=== PATIENT | female | born 1985 | race Caucasian/White ===

== ENCOUNTER 2024-07-28 16:38 | Emergency (ER) | payer OTHER, SELFPAY ==
[2024-07-28 16:49] VITALS: BP 128/70; PULSE 64; RESP 20; TEMP 37.4; O2SAT 100
--- NOTE | 2024-07-28 16:53 | ED_ITS ---
HPI - URI/Sore Throat General Chief Complaint: Upper Respiratory Infection Stated Complaint: cough/tight chest/diarrhea History of Present Illness HPI Narrative: Patient presents with a 2 week history of cough nasal congestion productive cough at times denies any shortness of breath no chest pain no fever no body aches. Patient declines testing for COVID or influenza at this time. Related Data Allergies Allergy/AdvReac Type Severity Reaction Status Date / Time No Known Allergies Allergy Verified 07/28/24 16:48 Review of Systems Review of Systems: CONSTITUTIONAL: Denies chills, or sweats. Reports fever and generalized body aches EYES: Denies visual changes, redness, or discharge. ENT: Denies otalgia. Reports nasal congestion runny nose and sore throat CARDIOVASCULAR: Denies chest pain, palpitations, or edema. RESPIRATORY: Denies dyspnea. Reports occasional cough GASTROINTESTINAL: Denies abdominal pain, nausea, vomiting, or diarrhea. GENITOURINARY: Denies dysuria or hematuria. SKIN: Denies rash or itching. MUSCULOSKELETAL: Denies back pain, joint pain, or myalgia. Reports generalized body aches NEUROLOGIC: Denies headache, numbness, or weakness. PSYCHIATRIC: Denies anxiety or depression. PMFSH Comments At time of signature, agree with nursing past medical, surgical, social and family history. There is no relevant family history pertinent to the presenting complaint Exam Narrative: The patient is a well-developed, well-nourished in no acute distress. SKIN: Skin is warm and dry without erythema, swelling or exudate. There is good turgor. No tenting. HEAD: Atraumatic. Normocephalic. No temporal or scalp tenderness. EYES: Moist and bright. Sclera and conjunctivae normal. No discharge. PERRLA. Extraocular motions intact. Gross visual acuity intact. EARS: Pinna is normal shape and contour. Clear external auditory canals. TM pearly singleton with good cone of light, no erythema or suppuration. Bilateral cerumen noted no gross hearing deficit. NOSE: pink, moist mucosa with good air movement. Clear rhinorrhea without nasal flaring. Septum midline. Mouth: moist mucous membranes. THROAT; mild erythema noted to posterior oropharynx with moderate postnasal drainage. Without exudate or ulceration.. Uvula midline. Normal movement of soft palate. NECK: Supple and nontender with full range of motion without discomfort. No me ningeal signs. LUNGS: Equal and bilateral breath sounds coarse lung sounds left lower base few scattered expiratory wheezes CHEST: The chest wall is without retractions or use of accessory muscles. HEART: Has a regular rate and rhythm without murmur, gallops, click or rub. ABDOMEN: Soft, nontender with positive active bowel sounds. No rebound tenderness. EXTREMITIES: Without cyanosis, clubbing or edema. Equal 2+ distal pulses and 2 second capillary refill noted. NEUROLOGIC: alert, active, . The patient moves all extremities with normal muscle strength. Normal muscle tone is noted. Normal coordination is noted. NO focal neurological findings noted. Course Course Level of Care: Express Care Visit Vital Signs Vital signs: Vital Signs Temperature 37.4 C 07/28/24 16:49 Pulse Rate 64 07/28/24 16:49 Respiratory Rate 20 07/28/24 16:49 Blood Pressure 128/70 07/28/24 16:49 Pulse Oximetry 100 07/28/24 16:49 Oxygen Delivery Room Air 07/28/24 16:49 Temperature 37.4 C 07/28/24 16:49 Pulse Rate 64 07/28/24 16:49 Respiratory Rate 20 07/28/24 16:49 Blood Pressure 128/70 07/28/24 16:49 Pulse Oximetry 100 07/28/24 16:49 Oxygen Delivery Room Air 07/28/24 16:49 Discharge Plan Discharge Clinical Impression: Upper respiratory infection, Lung crackles Patient Disposition: Home, Self-Care Condition: Stable Instructions: Antibiotic Form Additional Instructions: congestion - flonase am and pm for chronic sinus congestion or prolonged symptoms of sinusitis (takes several days to work). one to three times a day of irrigation of sinus with saline spray, ocean nasal spray or hamlet pot. fluids. if you don't have hypertension-afrin nasal spray with a 3 day limit for immediate relief of sinus congestion. for runny nose: do over the counter antihistamine (claritin, benadryl, zyrtec) for sneezing, runny nose. allergies. sudafed or decongestant can also be used, unless you have elevated blood pressure, nursing or . pineapple juice to help thin mucus pain and discomfort: over the counter treatment for pain - tylenol - with a max of 3 grams a day, not to take more than 3-4 days at this dose. discussed aleve - 1-2 am and pm with food. also not to take more than a few days if not improving. patient understands not to take ibuprofen or aleve without food. patient understands ibuprofen max is 4 pills 3 times a day, also not to take this amount for more than a few days if not improving. rest. -If you have any worsening of symptoms or any other concerns please go to the ED immediately. throat pain- gargling with salt water, throat losengers or chloraseptic spray may help with throat pain. if older than 2 years, cough- can try honey for cough if older than one year. mucinex, nyquil, dayquil, robitussin and other otc cold/cough medications can all be used in teenagers and adults with caution. do not mix or use multiple therapies without discussing with your doctor or pharmacy. steam from shower twice daily or cool mist humidifier. pineapple juice to help thin mucus eat yogurt 1-2 times daily or consider probiotics if on antibiotics. -If you have any worsening of symptoms or any other concerns please go to the ED immediately. Patient Language: [place] Prescriptions: New benzonatate 100 mg capsule 100 mg PO TID PRN (Reason: cough) 5 Days Qty: 10 0RF albuterol sulfate 90 mcg/actuation HFA aerosol inhaler 2 puff inhalation QID PRN (Reason: shortness of breath or wheezing) Qty: 1 0RF loratadine [Claritin] 10 mg tablet 10 mg PO DAILY Qty: 14 0RF azithromycin [Zithromax Z-Jaskaran] 250 mg tablet See Rx Instructions .ROUTE .COMPLEX Qty: 6 0RF Rx Instructions: take 500 mg today (day 1), then 250 mg for 4 days (days 2-5) fluticasone propionate [Flonase Allergy Relief] 50 mcg/actuation spray,suspension 2 spray NASAL BID Qty: 9.9 0RF Rx Instructions: administer into each nostril Follow-up/Referrals: PHYSICIAN,MAIL ORDER SORTER [Primary Care Provider] -
--- OUTSIDE RECORDS SUMMARY | 2024-08-02 14:20 | XMS_ITS | Clinical Summary ---
Author Organization [facility] [address] [facility] lt Address [address] [place] [address] Care Team Providers Care Apprentice Painter Neckties Name Role Phone No, Physician Primary Care Provider [phone] Allergies No known active allergies Medications benzonatate (TESSALON) 200 mg capsuleIndicati ons:Viral URI with cough Take 1 capsule (200 mg total) by mouth 3 (three) times a day as needed for cough 30 capsule 04/02/2024 Active Active Problems No known active problems Encounters Date Type Department Care Team Description 07/28/2024 10:42 AM SOLID WASTE DISPOSAL MANAGER - 07/28/2024 1:47 PM SOLID WASTE DISPOSAL MANAGER Emergency [facility] Emergency Department [address] [place] [address] Discharge Disposition: Left without being seen from Last 3 Months Social History Tobacco Use Types Packs/Day Years Used Date Smoking Tobacco: Never Assessed Personal Safety Answer Date Recorded Have you ever been in or are you currently in a harmful physical or emotional relationship or is someone making you feel afraid or unsafe? Denies 07/28/2024 Comments No Sex and Gender Information Value Date Recorded Sex Assigned at Not on file Legal Sex Female 8:49 AM CDT Gender Identity Not on file Sexual Orientation Not on file Obstetrics History Last Filed Vital Signs Vital Sign Reading Time Taken Comments Blood Pressure 133/68 07/28/2024 1:19 PM SOLID WASTE DISPOSAL MANAGER Pulse 63 07/28/2024 1:19 PM SOLID WASTE DISPOSAL MANAGER Temperature 37.8 ??C (100.1 ??F) 07/28/2024 1:[address] Respiratory Rate 18 07/28/2024 1:19 PM SOLID WASTE DISPOSAL MANAGER Oxygen Saturation 100% 07/28/2024 1:19 PM SOLID WASTE DISPOSAL MANAGER Inhaled Oxygen Concentration - - Weight 54.4 kg (120 lb) 07/28/2024 10:44 AM SOLID WASTE DISPOSAL MANAGER Height 162.6 cm (5' 4 ) 07/28/2024 10:44 AM SOLID WASTE DISPOSAL MANAGER Body Mass Index 20.6 07/28/2024 10:44 AM SOLID WASTE DISPOSAL MANAGER Plan of Treatment Health Maintenance Due Date Last Done Comments Cervical Cancer Screening 1984 Depression Screening 1984 Hepatitis C Screening 1984 DTaP/Tdap/Td Vaccine (1 - Tdap) 1995 Varicella Vaccines (1 of 2 - 13+ 2-dose series) 1997 Hepatitis B Screening 2002 Regular Well Visit/Exam 18-64 2002 Influenza Vaccine (#1) 2024 HPV Vaccines Aged Out No longer eligi ble based on patient's age to complete this topic Pneumococcal vaccine <65 Aged Out No longer eligible based on patient's age to complete this topic Insurance Care Teams Apprentice Painter Neckties Relationship Specialty Start Date End Date No, Physician PCP - General 04/02/24
--- OUTSIDE RECORDS SUMMARY | 2024-08-02 14:20 | XMS_ITS | Encounter Summary ---
Author Organization [facility] Healthcare Address [address] [place] [address] Care Team Providers Care Digital Field Service Technician Name Role Phone No, Physician Primary Care Provider Reason for Visit * Reason Comments Sore Throat Sore throat, cough, chest congestion, b/l ear pain, sx's started yesterday, no exp, otc dayquil and nyquil Encounter Details Date Type Department Care Team (Late st Contact Info) Description 04/02/2024 11:45 AM CDT Office Visit [facility] [place] [address] [place] [id number] Aranza Quiñones, PARENT TRAINER [address] [place] [address] Viral URI with cough (Primary Dx) Social History Tobacco Use Types Packs/Day Years Used Date Smoking Tobacco: Never Assessed Comments Unknown Sex and Gender Information Value Date Recorded Sex Assigned at Not on file Legal Sex Female 8:49 AM CDT Gender Identity Not on file Sexual Orientation Not on file documented as of this encounter Last Filed Vital Signs Vital Sign Reading Time Taken Comments Blood Pressure 118/68 04/02/2024 11:42 AM CDT Pulse 88 04/02/2024 11:42 AM CDT Temperature 36.6 ??C (97.8 ??F) 04/02/2024 11:42 AM C DT Respiratory Rate 18 04/02/2024 11:42 AM CDT Oxygen Saturation 99% 04/02/2024 11:42 AM CDT Inhaled Oxygen Concentration - - Weight 55.3 kg (122 lb) 04/02/2024 11:42 AM CDT Height 162.6 cm (5' 4 ) 04/02/2024 11:42 AM CDT Body Mass Index 20.94 04/02/2024 11:42 AM CDT documented in this encounter Patient Instructions * Patient Instructions* Aranza Quiñones NP - 04/02/2024 11:45 AM CDT Magic mouthwash: equal parts liquid benadryl/diphenhydramine and maalox/mylanta + 1-2 drops of anbesol. Gargle and spit every 6 hours for sore throat as needed. PHARYNGITIS Strep testing today was Negative A throat culture has been sent to the lab. The clinic will call with abnormal results. Most sore throats are caused by viruses. Viruses last approx 7-10 days on average. Antibiotics do not help. Using them to treat viral infections helps strengthen bacteria and make them resistant to antibiotics. Sore throats should only be treated with antibiotics if a strep test is positive. Follow up with your pcp if symptoms are not improving. Go to ER/call PCP if worsening symptoms including fever unrelieved by tylenol/ibuprofen, rash, difficulty swallowing, tonsillar/throat swelling, difficulty breathing. The following tips may help your sore throat feel better: ? Drink warm liquids such as lemon tea or tea with honey. ? Gargle several times a day with warm salt water (1/2 tsp of salt in 1 cup water). ? Drink cold liquids or suck on popsicles. ? Suck on hard candies or throat lozenges. Young children should not be given such products becausethey can choke on them. ? A cool-mist vaporizer or humidifier can moisten and soothe a dry and painful throat. ? Try btzn-wbk-kavkeiv pain medications, such as acetaminophen or ibuprofen Research has proven that unless you are running a fever or symptoms start to improve then get worseagain, sinus infections are typically viral until days 9- 10. This means they will not respond to antibiotics. You have been diagnosed with a VIRAL INFECTION. -Viral infections do not improve with antibiotics. -Viral symptoms can linger from 7-14 days -The color of drainage or phlegm does not always reflect the need for an antibiotic, even during a viral illness it is normal for drainage to change from yellow to green at times. -Please refer to the CDC Get Smart (cdc.gov/getsmart) campaign for more details. There are many OTC medications and supportive care measures you can try to treat your symptoms until your symptoms resolve. Use all OTC medications as directed per package instructions Symptomatic treatments include: Increase Vitamins C,D , Zinc -For nasal congestion or sinus pressure - phenylephrine or pseudoephedrine can be used, if you havehigh blood pressure problems do not take these medications. CORICIDIN products are good for people with high blood pressure. -Over the counter loratadine (Claritin) or cetirizine (Zyrtec) to reduce secretions. -Dextromethorphan (Robitussin) for cough-do not use if you have high blood pressure or heart disease -You may try flonase nasal spray for your nasal congestion. -Acetaminophen (Tylenol), ibuprofen (Motrin, Advil), or Aleve (naproxen) for pain or fever. -The use of hypertonic saline to irrigate nasal passageways can be helpful. Over the counter systems include Neti Pot and Nasopure. Use with distilled water -Salt water gargles and throat lozenges can be helpful for sore throat. -Antihistamines (Xyzal, Zyrtec, Claritin or Caitlin) as needed for drainage. -Mucinex/guaifenesin (make sure it does not contain a decongestant if you have high blood pressure)as directed to promote cough -Cough drops and throat lozenges -Increase decaffeinated fluids -Sleep with head of bed raised (to promote drainage) -Warm packs to face to facilitate sinus drainage -Avoid spreading the virus by remaining at home and away from others until you are fever-free (temperature below 100) for 24 hours, without the aid of fever reducers. Good handwashing and covering your mouth whencoughing are also important. -To prevent spreading the illness to others cover your sneeze and cough into your arm and not your hand, don't allow others to eat or drink with the same utensils or glass, and use hand carpenter mine before touching people or common surfaces. If you are not improving or worsening in the next 5-7 days you must RETURN to the clinic, go to your PCP, or Urgent Care/ER to be SEEN and reevaluated. No prescriptions or refills will be given by phone without another evaluation. SERIOUS COMPLICATIONS AFTER AN UPPER RESPIRATORY ILLNESS CAN OCCUR. CALL 911 OR GO TO ER WITH ANY DIFFICULTY BREATHING, SHORTNESS OF BREATH, INCREASED WORK OF BREATHING, DIFFICULTY TAKING A DEEP BREATH, ANY CHANGES IN THE COLOR OF YOUR SKIN (BLUISH OR PALE COLOR), WORSENING OF COUGH, OR CONSISTENT FEVERS, INABILITY TO KEEP FLUIDS DOWN, DECREASED ABILITIY TO URINATE,INCREASED HEADACHE, OR NEW NECKSTIFFNESS. VIRAL ILLNESSES LEAVE YOU MORE VULNERABLE TO DEVELOP A BACTERIAL INFECTION AND ANY OF THESE SIGNS AND SYMPTOMS SHOULD BE TAKEN SERIOUSLY. documented in this encounter Ordered Prescriptions Prescription Sig Dispense Quantity Refills Last Filled Start Date End Date benzonatate (TESSALON) 200 mg capsuleIndications :Viral URI with cough Take 1 capsule (200 mg total) by mouth 3 (three) times a day as needed for cough 30 capsule 04/02/2024 lidocaine viscous (XYLOCAINE) 2 % solutionIndication s:Viral URI with cough Apply 15 mL to the mouth or throat every 4 (four) hours as needed (for sore throat) for up to 5 days Swish & spit 200 mL 04/02/2024 documented in this encounter Progress Notes * Aranza Quiñones NP - 04/02/2024 11:45 AM CDT Images from the original note were not included. Subjective/Objective Patient ID: Eliz Alford is a 38 y.o. female. Chief Complaint Sore Throat (Sore throat, cough, chest congestion, b/l ear pain, sx's started yesterday, no exp, otc dayquil and nyquil) Pt presents to [facility] c/o sore throat, productive cough,nasal congestion, dania ear pain, chest congestion for the past days. OTC meds tried-dayquil, nyquil. Denies SOB or fever. Pt is drinking plenty of fluids. No known sick contacts. Sore Throat Review of Systems HENT: Positive for sore throat. All systems reviewed and are negative or non contributory for this patient's presentation today other than as stated in the HPI. Physical Exam Vitals and nursing note reviewed. Constitutional: General: She is not in acute distress. Appearance: She is not ill-appearing or toxic-appearing. HENT: Head: Normocephalic. Right Ear: Tympanic membrane, ear canal and external ear normal. Left Ear: Tympanic membrane, ear canal and external ear normal. Nose: Mucosal edema present. Mouth/Throat: Pharynx: Posterior oropharyngeal erythema and postnasal drip present. Eyes: Conjunctiva/sclera: Conjunctivae normal. Cardiovascular: Rate and Rhythm: Normal rate and regular rhythm. Heart sounds: Normal heart sounds. Pulmonary: Effort: Pulmonary effort is normal. No respiratory distress. Breath sounds: Normal breath sounds. No wheezing or rales. Musculoskeletal: Cervical back: No rigidity. Lymphadenopathy: Head: Right side of head: Tonsillar adenopathy present. Left side of head: Tonsillar adenopathy present. Skin: General: Skin is warm and dry. Neurological: General: No focal deficit present. Mental Status: She is alert and oriented to person, place, and time. Psychiatric: Mood and Affect: Mood normal. Behavior: Behavior normal. Thought Content: Thought content normal. Vitals: 04/02/24 1142 BP: 118/68 Pulse: 88 Resp: 18 Temp: 36.6 ??C (97.8 ??F) TempSrc: Temporal SpO2: 99% Weight: 55.3 kg (122 lb) Height: 162.6 cm (5' 4 ) Assessment/Plan Rapid strep and covid neg Throat culture collected Discussed viral versus bacterial infections and the lack of benefit of antibiotics in treatment of viral infections. Discussed supportive care including antihistamines, decongestants, Mucinex and Tylenol and Ibuprofen for pain. Encouraged to take medications as discussed over the next 7-10 days. Neeru chu verbalizes understanding of instructions given. Diagnoses and all orders for this visit: Viral URI with cough (Primary) - POCT rapid strep A - COVID-19 POC - benzonatate (TESSALON) 200 mg capsule; Take 1 capsule (200 mg total) by mouth 3 (three) times a day as needed for cough - lidocaine viscous (XYLOCAINE) 2 % solution; Apply 15 mL to the mouth or throat every 4 (four) hours as needed (for sore throat) for up to 5 days Swish & spit - Throat culture Throat; Future Recent Results (from the past 24 hour(s)) POCT rapid strep A Collection Time: 04/02/24 12:07 PM Result Value Ref Range Rapid Strep A, POC Negative Negative COVID-19 POC Collection Time: 04/02/24 12:08 PM Specimen: Nasal Result Value Ref Range COVID-19 Ag POC (BD Veritor) Presumptive Negative Presumptive Negative, Invalid Patient Education: Disposition Treatment plan including expectations, follow up, and return precautions discussed with patient/parent, verbalizes understanding. Medication dosage, use, and potential adverse reactions discussed with patient/parent. Advised to follow up with PCP if symptoms do not resolve as expected or sooner if condition worsens. Signs/symptoms warranting ER evaluation reviewed. Patient and/or guardian was given an opportunity to ask questions, questions answered. This office note has been partially dictated using 360imaging software, and as a result portions of the record may have been created with this software. Occasional wrong-word or '[id number]' substitutions may have occurred due to the inherent limitations of voice recognition software. Read the chartcarefully and recognize, using context, where substitutions have occurred Aranza Quiñones NP documented in this encounter Miscellaneous Notes * Addendum Note - Shena De Jesus - 04/02/2024 11:45 AM CDTAddended by: SHENA DE JESUS on: 04/02/2024 05:52 PM Modules accepted: Orders documented in this encounter Plan of Treatment Not on file documented as of this encounter Procedures Procedure Name Priority Date/Time Associated Diagnosis Comments COVID-19 POC Routine 04/02/2024 12:08 PM CDT Viral URI with cough POCT RAPID STREP Routine 04/02/2024 12:0 7 PM CDT Viral URI with cough documented in this encounter Results * Throat culture Throat (04/02/2024 12:23 PM CDT) Report Final Report: No growth of pathogens. Comment:Testing performed by : [facility], [address] [place]., [address] Throat 04/02/2024 12:2 3 PM CDT 04/02/2024 10:20 PM CDT Narrative MALATHI ROD - 04/03/2024 7:11 PM CDT Testing performed by [facility] Laboratory ([phone]). Aranza Quiñones PARENT TRAINER LAB MICROBIOLOGY - GENERAL ORD ERABLES Final Result MALATHI [address] Department [place] [address] * COVID-19 POC (04/02/2024 12:08 PM CDT) COVID-19 Ag POC (BD Veritor) Presumptive Negative Presumptive Negative, Invalid [facility] Nasal 04/02/2024 12:0 8 PM CDT Aranza Quiñones PARENT TRAINER POINT OF CARE TEST ORDERABLES Final Result [facility] [address] [place] [id number] * POCT rapid strep A (04/02/2024 12:07 PM CDT) Rapid Strep A, POC Negative Negative Swab 04/02/2024 12:0 7 PM CDT Aranza Quiñones PARENT TRAINER POINT OF CARE TEST ORDERABLES Final Result documented in this encounter Visit Diagnoses Diagnosis Viral URI with cough- Primary Viral URI with cough documented in this encounter Additional Health Concerns Infection Onset Date Last Indicated Resolved Time COVID: Suspected 04/02/2024 04/02/2024 04/02/2024 12:09 PM CDT documented as of this encounter Care Teams Digital Field Service Technician Relationship Specialty Start Date End Date No, Physician PCP - General 04/02/24 documented as of this encounter
--- OUTSIDE RECORDS SUMMARY | 2024-08-02 14:20 | XMS_ITS | Encounter Summary ---
Author Organization [facility] Healthcare Address [address] [place] [address] Care Team Providers Care Splicer Machine Operator Name Role Phone No, Physician Primary Care Provider [phone] Encounter Details Date Type Department Care Team (Late st Contact Info) Description 04/04/2024 Telephone [facility] Medical Group [facility] [place] [address] [place] [address] Keisha Fletcher MA Social History Tobacco Use Types Packs/Day Years Used Date Smoking Tobacco: Never Assessed Comments Unknown Sex and Gender Information Value Date Recorded Sex Assigned at Not on file Legal Sex Female 8:49 AM CDT Gender Identity Not on file Sexual Orientation Not on file documented as of this encounter Miscellaneous Notes * Telephone Encounter - Keisha Fletcher MA - 04/04/2024 8:53 AM CDT Spoke with the patient regarding results; she states understanding and has no further questions at this time. * Telephone Encounter - Keisha Fletcher MA - 04/04/2024 8:53 AM CDT ----- Message from Thea Donato NP sent at 04/03/2024 7:51 PM CDT ----- Please call patient and let them know the throat culture was negative for infection. documented in this encounter Plan of Treatment Not on file documented as of this encounter Visit Diagnoses Not on filedocumented in this encounter Care Teams Splicer Machine Operator Relationship Specialty Start Date End Date No, Physician PCP - General 04/02/24 documented as of this encounter
--- OUTSIDE RECORDS SUMMARY | 2024-08-02 14:20 | XMS_ITS | Encounter Summary ---
Author Organization [facility] Healthcare Address [address] [place] [address] Care Team Providers Care Licensed Master Social Worker Name Role Phone No, Physician Primary Care Provider [phone] Reason for Visit * Reason Comments Flu Symptoms Encounter Details Date Type Department Care Team (Late st Contact Info) Description 07/28/2024 10:42 AM POOL INSTALLER - 07/28/2024 1:47 PM POOL INSTALLER Emergency [facility] Emergency Department [address] [place] [address] Discharge Disposition: Left without being seen Social History Tobacco Use Types Packs/Day Years [...] Comments Blood Pressure 133/68 07/28/2024 1:19 PM POOL INSTALLER Pulse 63 07/28/2024 1:19 PM POOL INSTALLER Temperature 37.8 ??C (100.1 ??F) 07/28/2024 1:[address] Respiratory Rate 18 07/28/2024 1:19 PM POOL INSTALLER Oxygen Saturation 100% 07/28/2024 1:19 PM POOL INSTALLER Inhaled Oxygen Concentration - - Weight 54.4 kg (120 lb) 07/28/2024 10:44 AM POOL INSTALLER Height 162.6 cm (5' 4 ) 07/28/2024 10:44 AM POOL INSTALLER Body Mass Index 20.6 07/28/2024 10:44 AM POOL INSTALLER documented in this encounter Medications at Time of Discharge benzonatate (TESSALON) 200 mg capsuleIndication s:Viral URI with cough Take 1 capsule (200 mg total) by mouth 3 (three) times a day as needed for cough 30 capsule 04/02/2024 documented as of this encounter Discharge Disposition Disposition Code Departure Means Destination Left without being seen documented in this encounter ED Notes * Cyndi Painting RN - 07/28/2024 10:43 AM CST Pt states she has been sick for two weeks. Pt states she has had a wet cough, sore throat, diarrhea. INSTALLER documented in this encounter Plan of Treatment Not on file documented as of this encounter Visit Diagnoses Not on filedocumented in this encounter Care Teams Licensed Master Social Worker Relationship Specialty Start Date End Date No, Physician PCP - General 04/02/24 documented as of this encounter
--- OUTSIDE RECORDS SUMMARY | 2024-08-02 14:20 | XMS_ITS | Encounter Summary ---
Author Organization [facility] Healthcare Address [address] [place] [address] Care Team Providers Care Air Duct Mechanic Name Role Phone No, Physician Primary Care Provider [phone] Encounter Details Date Type Department Care Team (Latest Contact Info) Description 04/02/2024 12:23 PM CDT - 04/02/2024 11:59 PM CDT Hospital Encounter [address] [address] Viral URI with cough Discharge Disposition: Discharge to home or self care Social History Tobacco Use Types Packs/Day Years Used Date Smoking Tobacco: Never Assessed Comments Unknown Sex and Gender Information Value Date Recorded Sex Assigned at Not on file Legal Sex Female 8:49 AM CDT Gender Identity Not on file Sexual Orientation Not on file documented as of this encounter Medications at Time of Discharge benzonatate (TESSALON) 200 mg capsuleIndication s:Viral URI with cough Take 1 capsule (200 mg total) by mouth 3 (three) times a day as needed for cough 30 capsule 04/02/2024 lidocaine viscous (XYLOCAINE) 2 % solutionIndicatio ns:Viral URI with cough Apply 15 mL to the mouth or throat every 4 (four) hours as needed (for sore throat) for up to 5 days Swish & spit 200 mL 04/02/2024 04/07/2024 documented as of this encounter Discharge Disposition Disposition Code Departure Means Destination Discharge to home or self care documented in this encounter Miscellaneous Notes * Result Encounter Note - Keisha Fletcher MA - 04/02/2024 11:59 PM CDT Spoke with the patient regarding results; she states understanding and has no further questions at this time. documented in this encounter Plan of Treatment Not on file documented as of this encounter Procedures Procedure Name Priority Date/Time Associated Diagnosis Comments THROAT CULTURE Routine 04/02/2024 12:23 PM CDT Viral URI with cough documented in this encounter Results * Throat culture Throat (04/02/2024 12:23 PM CDT) Report Final Report: No growth of pathogens. Comment:Testing performed by : [facility], [address] [place] [address] Throat 04/02/2024 12:2 3 PM CDT 04/02/2024 10:20 PM CDT Narrative MALATHI ROD - 04/03/2024 7:11 PM CDT Testing performed by [facility] Microbiology Laboratory ([phone]). us Aranza Quiñones [facility] MICROBIOLOGY - GENERAL ORD ERABLES Final Result [facility] [address] [address] Department [place] [address] documented in this encounter Visit Diagnoses Diagnosis Viral URI with cough documented in this encounter Care Teams Air Duct Mechanic Relationship Specialty Start Date End Date No, Physician PCP - General 04/02/24 documented as of this encounter
--- OUTSIDE RECORDS SUMMARY | 2024-08-02 14:20 | XMS_ITS | Referral Summary ---
Author Organization [facility] [address] [facility] lto Address [address] [place] [address] Care Team Providers Care Pipe Finisher Name Role Phone No, Physician Primary Care Provider [phone] Encounters Date Type Department Care Team Description 07/28/2024 10:42 AM CHEMIST WATER PURIFICATION - 07/28/2024 1:47 PM CHEMIST WATER PURIFICATION Emergency [facility] Emergency Department [address] [place] [address] Discharge Disposition: Left without being seen from Last 3 Months Allergies No known active allergies Medications benzonatate (TESSALON) 200 mg capsuleIndicati ons:Viral URI with cough Take 1 capsule (200 mg total) by mouth 3 (three) times a day as needed for cough 30 capsule 04/02/2024 Active Active Problems No known active problems Social History Tobacco Use Types Packs/Day Years [...] on file Sexual Orientation Not on file Last Filed Vital Signs Vital Sign Reading Time Taken Comments Blood Pressure 133/68 07/28/2024 1:19 PM CHEMIST WATER PURIFICATION Pulse 63 07/28/2024 1:19 PM CHEMIST WATER PURIFICATION Temperature 37.8 ??C (100.1 ??F) 07/28/2024 1:[address] Respiratory Rate 18 07/28/2024 1:19 PM CHEMIST WATER PURIFICATION Oxygen Saturation 100% 07/28/2024 1:19 PM CHEMIST WATER PURIFICATION Inhaled Oxygen Concentration - - Weight 54.4 kg (120 lb) 07/28/2024 10:44 AM CHEMIST WATER PURIFICATION Height 162.6 cm (5' 4 ) 07/28/2024 10:44 AM CHEMIST WATER PURIFICATION Body Mass Index 20.6 07/28/2024 10:44 AM CHEMIST WATER PURIFICATION Plan of Treatment Not on file Insurance Care Teams Pipe Finisher Relationship Specialty Start Date End Date No, Physician PCP - General 04/02/24
== END 2024-07-28 17:05 | disposition home or self-care (01) ==
PROVIDERS: Emergency Provider Nurse Practitioner Family
DX: J06.9 Acute upper respiratory infection, unspecified (principal); R09.89 Other specified symptoms and signs involving the circulatory and respiratory systems
CPT/HCPCS: 99203; G0463

== ENCOUNTER 2024-10-04 15:52 | Emergency (ER) | payer OTHER, SELFPAY ==
[2024-10-04 15:53] VITALS: BP 138/74; PULSE 76; RESP 18; TEMP 36.8; O2SAT 99
--- OUTSIDE RECORDS SUMMARY | 2024-10-04 15:54 | XMS_ITS | Clinical Summary ---
Author Organization [facility] [place] 163 [facility] lt Address [address] [place] [address] Care Team Providers Care Quality Assurance Representative Name Role Phone No, Physician Primary Care Provider [phone] Allergies No known active allergies Medications benzonatate (TESSALON) 200 mg capsuleIndicati ons:Viral URI with cough Take 1 capsule (200 mg total) by mouth 3 (three) times a day as needed for cough 30 capsule 04/02/2024 Active Active Problems No known active problems Encounters Date Type Department Care Team Description 07/28/2024 10:42 AM PRODUCE DEPARTMENT MANAGER - 07/28/2024 1:47 PM PRODUCE DEPARTMENT MANAGER Emergency [facility] Emergency Department [address] [place] [address] Discharge Disposition: Left without being seen from [...] Comments Blood Pressure 133/68 07/28/2024 1:19 PM PRODUCE DEPARTMENT MANAGER Pulse 63 07/28/2024 1:19 PM PRODUCE DEPARTMENT MANAGER Temperature 37.8 C (100.1 F) 07/28/2024 1:19 PM PRODUCE DEPARTMENT MANAGER Respiratory Rate 18 07/28/2024 1:19 PM PRODUCE DEPARTMENT MANAGER Oxygen Saturation 100% 07/28/2024 1:19 PM PRODUCE DEPARTMENT MANAGER Inhaled Oxygen Concentration - - Weight 54.4 kg (120 lb) 07/28/2024 10:44 AM PRODUCE DEPARTMENT MANAGER Height 162.6 cm (5' 4 ) 07/28/2024 10:44 AM PRODUCE DEPARTMENT MANAGER Body Mass Index 20.6 07/28/2024 10:44 AM PRODUCE DEPARTMENT MANAGER Plan of Treatment Health Maintenance Due Date Last Done Comments Breast Cancer Screening-Mammogram 1984 Cervical Cancer Screening 1984 Depression Screening 1984 [...] patient's age to complete this topic Insurance [facility] H[facility]/PPO Address: [facility] [address] [place] [address] Care Teams Quality Assurance Representative Relationship Specialty Start Date End Date No, Physician PCP - General 04/02/24
--- OUTSIDE RECORDS SUMMARY | 2024-10-04 15:54 | XMS_ITS | Referral Summary ---
Author Organization [facility] [place] [place] 163 [facility] lt Address [address] [place] [address] Care Team Providers Care S Iron Worker Name Role Phone No, Physician Primary Care Provider Encounters Date Type Department Care Team Description 07/28/2024 10:42 AM GENERAL COUNSEL - 07/28/2024 1:47 PM GENERAL COUNSEL Emergency [facility] Emergency Department [address] [place] [address] Discharge Disposition: Left without being seen from [...] Comments Blood Pressure 133/68 07/28/2024 1:19 PM GENERAL COUNSEL Pulse 63 07/28/2024 1:19 PM GENERAL COUNSEL Temperature 37.8 C (100.1 F) 07/28/2024 1:19 PM GENERAL COUNSEL Respiratory Rate 18 07/28/2024 1:19 PM GENERAL COUNSEL Oxygen Saturation 100% 07/28/2024 1:19 PM GENERAL COUNSEL Inhaled Oxygen Concentration - - Weight 54.4 kg (120 lb) 07/28/2024 10:44 AM GENERAL COUNSEL Height 162.6 cm (5' 4 ) 07/28/2024 10:44 AM GENERAL COUNSEL Body Mass Index 20.6 07/28/2024 10:44 AM GENERAL COUNSEL Plan of Treatment Not on file Insurance [facility] HMO/PPO Address: [facility] [address] [place] [address] Care Teams S Iron Worker Relationship Specialty Start Date End Date No, Physician PCP - General 04/02/24
[2024-10-04 15:55] VITALS: O2SAT 99
--- NOTE | 2024-10-04 15:59 | ED_ITS ---
HPI - Epistaxis General Chief complaint: Epistaxis Stated complaint: fever, vomiting, diarrhea Time Seen by Provider: 10/04/24 15:59 Source: patient Mode of arrival: ambulatory Limitations: no limitations History of Present Illness HPI Narrative: patient is a 39-year-old female with a left-sided nose bleed for the past few days on and off. She has had 2 specific events with lots of blood according to the patient. [place] She has been sick with a viral syndrome for the past week as well. She has been blowing her nose and having nasal congestion. She had fever which has resolved at this time. MD complaint: epistaxis ( Left nose) Location: left nostril Onset (ago): day(s) (2) Duration: intermittent and now resolved Context: other ( no prior history of bleeding or nose bleeds [place] Associated symptoms: fever ( resolved at this time) Treatment prior to arrival: nose pinching, head tilted back and stuffed nose with tissue Related Data Allergies Allergy/AdvReac Type Severity Reaction Status Date / Time No Known Allergies Allergy Verified 10/04/24 15:56 Review of Systems 2 Review of Systems: All systems reviewed & are unremarkable except as noted in HPI and below Constitutional: Constitutional: Reports no additional constitutional complaints Eyes: Eyes: Reports no additional eye complaints ENT: Reports system reviewed and no additional complaints, except as documented Cardiovascular: Cardiovascular: Reports no additional cardiovascular complaints Respiratory: Respiratory: Reports no additional respiratory complaints Gastrointestinal: Gastrointestinal: Reports no additional gastrointestinal complaints Genitourinary: Genitourinary: Reports no additional female genitourinary complaints Musculoskeletal: Musculoskeletal: Reports no additional musculoskeletal complaints Integumentary/Breasts: Skin/Breast: Reports system reviewed and no additional complaints, except as docu Neurologic: Reports system reviewed and no additional complaints, except as documented Psychiatric: Psychiatric: Reports no additional psychiatric complaints Endocrine: Endocrine: Reports no additional endocrine complaints Hematologic/Lymphatic: Hematologic/Lymphatic: Reports no additional hematologic/lymphatic complaints Allergic/Immunologic: Allergic/Immunologic: Reports no additional allergic/immunologic complaints Exam 2 Const: General: healthy appearing Nutritional Appearance: well nourished Orientation/consciousness: patient oriented x3 Limitations: no limitations HENMT: Head: normal to inspection Ears: external ears normal F nilesh/Nose/Sinus: Normal external nose present Other: left nose / nostril has a small area of nidus where there was prior bleeding in the anterior wall; no active bleeding; no clots Eyes: Conjunctivae: conjunctivae normal Pupils: Equal, round and reactive pupils present EOM: EOMs intact bilaterally Neck: Neck: normal visual inspection Chest: Chest palpation & inspection: normal inspection of the chest Resp: Effort & Inspection: normal respiratory effort and not labored A uscultation: clear to auscultation bilaterally and no crackles Cardio: Rate: regular rate Rhythm: regular rhythm Heart sounds: no murmurs GI: Inspection: non-distended GI Palp: Yes Soft to palpation and No Tenderness to palpation present (GI) Auscultation: normal bowel sounds : General: Yes bladder normal to palpation Back/Spine/Pelvis: Back: no CVA tenderness Skin: General skin exam: normal color Rashes: no rashes Wounds: no wounds Neuro: General: patient oriented x3 Cranial nerves: Yes Nystagmus not present Speech: normal speech Extrem: General: normal to inspection Psych: Mental Status: mental status grossly normal Affect: normal affect Attitude: cooperative Course Vital Signs Vital signs: Vital Signs Temperature 36.8 C 10/04/24 15:53 Pulse Rate 76 10/04/24 15:53 Respiratory Rate 18 10/04/24 15:53 Blood Pressure 138/74 10/04/24 15:53 Pulse Oximetry 99 10/04/24 15:53 Oxygen Delivery Room Air 10/04/24 15:53 Temperature 36.8 C 10/04/24 15:53 Pulse Rate 76 10/04/24 15:53 Respiratory Rate 18 10/04/24 15:53 Blood Pressure 138/74 10/04/24 15:53 Pulse Oximetry 99 10/04/24 15:55 Oxygen Delivery Room Air 10/04/24 15:55 MDM - Epistaxis MDM Narrative Medical decision making narrative: patient is a 39-year-old female with a nose bleed on and off for the past 2 days. Patient also has a viral syndrome. We will do a COVID panel test at this time. There is no need for intervention to the nose bleed. She will get [id number] humidity and nasal moistening sprays. We will check labs for safety. Lab Data Attestation: I reviewed the patient's lab results. 10/04/24 16:25 10/04/24 16:25 Labs: Lab Results 10/04/24 10/04/24 Range/Units 16:00 16:25 WBC 3.7 L (4.8-10.8) K/mm3 RBC 3.97 L (4.20-5.40) M/mm3 Hgb 12.8 (12.0-15.0) g/dL Hct 38.8 (35.0-49.0) % MCV 97.7 (78.0-102.0) fL MCH 32.2 H (27.0-31.0) pg MCHC 33.0 (32-36) g/dL RDW 12.1 (11.6-14.4) % Plt Count 144 L (150-420) K/mm3 MPV 10.9 (9.2-11.8) fl Immature Gran % (Auto) Not Reportable Neut % (Auto) Not Reportable Lymph % (Auto) Not Reportable [place] % (Auto) Not Reportable Eos % (Auto) Not Reportable Baso % (Auto) Not Reportable Lymph # (Auto) Not Reportable [place] # (Auto) Not Reportable Eos # (Auto) Not Reportable Baso # (Auto) Not Reportable Abs Immat Gran (auto) Not Reportable Absolute Neuts (auto) Not Reportable Absolute Nucleated RBC Not Reportable Total Counted 100 Neutrophils % (Manual) 28 L (46-73) % Band Neutrophils % 0 (0-6) % Lymphocytes % (Manual) 60 H (18-44) % Monocytes % (Manual) 10 H (3-9) % Eosinophils % (Manual) 1 (1-6) % Basophils % (Manual) 1 (0-1) % Nucleated RBC % Not Reportable Abs Neuts (Manual) 1.03 L (1.7-7.2) K/mm3 Abs Lymphs (Manual) 2.22 (1.1-4.5) K/mm3 Abs Monocytes (Manual) 0.37 (0.1-0.90) K/mm3 Absolute Eos (Manual) 0.03 (0.02-0.50) K/mm3 Abs Basophils (Manual) 0.03 (0-0.1) K/mm3 Platelet Estimate Adequate (Adequate) Schistocytes Not Reportable PT 10.6 (9.50-12.1) Seconds INR 1.0 APTT 29.8 (23.9-30.70) Sec Sodium 137 (136-145) mmol/L Potassium 3.4 L (3.5-5.1) mmol/L Chloride 100 (98-108) mmol/L Carbon Dioxide 26 (21-32) mmol/L Anion Gap 11 (4-12) mmol/L BUN 9 (7-18) mg/dL Creatinine 0.84 (0.55-1.02) mg/dL Estim Creat Clear Calc 67 ml/min Estimated GFR > 60 (59 - ) Glucose 100 H (70-99) mg/dL Calculated Osmolality 282 L (285-295) mOsm/kg Calcium 8.0 L (8.5-10.1) mg/dL Total Bilirubin 0.2 (0.00-1.00) mg/dL AST 19 (15-37) U/L ALT 28 (14-59) U/L Alkaline Phosphatase 75 (46-116) U/L Total Protein 7.1 (6.4-8.2) g/dL Albumin 3.5 (3.4-5.0) g/dL Influenza A (RT-PCR) Positive A (Negative) Influenza B (RT-PCR) Negative (Negative) RSV (RT-PCR) Positive A (Negative) SARS-CoV-2 RNA (RT-PCR) Negative (Negative) Discharge Plan Discharge Clinical Impression: Epistaxis, Influenza A Respiratory syncytial virus (RSV) Qualifiers: RSV infection type: unspecified Qualified Code(s): B33.8 - Other specified viral diseases Patient Disposition: Home, Self-Care Condition: Stable Instructions: Nosebleed (ED), Influenza (DC), RSV (Respiratory Syncytial Virus) Infection (ED) Additional Instructions: Please follow-up with the primary doctor in the next week. Please use humidifier and nasal spray that is meant for moisture in the nostrils. You may get Pritesh-Synephrine which is good for nose bleeds when it starts to bleed again. Patient Language: Korean Prescriptions: No Action benzonatate 100 mg capsule 100 mg PO TID PRN (Reason: cough) 5 Days Qty: 10 0RF albuterol sulfate 90 mcg/actuation HFA aerosol inhaler 2 puff inhalation QID PRN (Reason: shortness of breath or wheezing) Qty: 1 0RF loratadine [Claritin] 10 mg tablet 10 mg PO DAILY Qty: 14 0RF azithromycin [Zithromax Z-Jaskaran] 250 mg tablet See Rx Instructions .ROUTE .COMPLEX Qty: 6 0RF Rx Instructions: take 500 mg today (day 1), then 250 mg for 4 days (days 2-5) fluticasone propionate [Flonase Allergy Relief] 50 mcg/actuation spray,suspension 2 spray NASAL BID Qty: 9.9 0RF Rx Instructions: administer into each nostril Follow-up/Referrals: UNKNOWN,DOCTOR [Primary Care Provider] - Time of Disposition: 17:02
[2024-10-04 16:28] LABS: Hematocrit 38.8 % (35.0-49.0); Hemoglobin 12.8 g/dL (12.0-15.0); Mean Corpuscular Hemoglobin 32.2 pg (27.0-31.0); Mean Corpuscular Volume 97.7 fL (78.0-102.0); Mean Platelet Volume 10.9 fl (9.2-11.8); Platelet Count Result 144 K/mm3 (150-420); Red Blood Count 3.97 M/mm3 (4.20-5.40); Red Cell Distribution Width 12.1 % (11.6-14.4); White Blood Count 3.7 K/mm3 (4.8-10.8)
--- OUTSIDE RECORDS SUMMARY | 2024-10-04 16:34 | XMS_ITS | Clinical Summary ---
Author Organization [facility] [place] 163 [facility] lt Address [address] [place] [address] Care Team Providers Care Hand Edge Bander Name Role Phone No, Physician Primary Care Provider [phone] Allergies No known active allergies Medications benzonatate (TESSALON) 200 mg capsuleIndicati ons:Viral URI with cough Take 1 capsule (200 mg total) by mouth 3 (three) times a day as needed for cough 30 capsule 04/02/2024 Active Active Problems No known active problems Encounters Date Type Department Care Team Description 07/28/2024 10:42 AM AIR CONDITIONING INSULATION INSTALLER - 07/28/2024 1:47 PM AIR CONDITIONING INSULATION INSTALLER Emergency [facility] Emergency Department [address] [place] [address] Discharge Disposition: Left without being seen from [...] Comments Blood Pressure 133/68 07/28/2024 1:19 PM AIR CONDITIONING INSULATION INSTALLER Pulse 63 07/28/2024 1:19 PM AIR CONDITIONING INSULATION INSTALLER Temperature 37.8 C (100.1 F) 07/28/2024 1:19 PM AIR CONDITIONING INSULATION INSTALLER Respiratory Rate 18 07/28/2024 1:19 PM AIR CONDITIONING INSULATION INSTALLER Oxygen Saturation 100% 07/28/2024 1:19 PM AIR CONDITIONING INSULATION INSTALLER Inhaled Oxygen Concentration - - Weight 54.4 kg (120 lb) 07/28/2024 10:44 AM AIR CONDITIONING INSULATION INSTALLER Height 162.6 cm (5' 4 ) 07/28/2024 10:44 AM AIR CONDITIONING INSULATION INSTALLER Body Mass Index 20.6 07/28/2024 10:44 AM AIR CONDITIONING INSULATION INSTALLER Plan of Treatment Health Maintenance Due Date [...] patient's age to complete this topic Insurance [facility] H[facility]PPO Address: [facility] [address] [place] [address] Care Teams Hand Edge Bander Relationship Specialty Start Date End Date No, Physician PCP - General 04/02/24
--- OUTSIDE RECORDS SUMMARY | 2024-10-04 16:34 | XMS_ITS | Referral Summary ---
Author Organization [facility] [place] 163 [facility] lt Address [address] [place] [address] Care Team Providers Care Data Management Consultant Name Role Phone No, Physician Primary Care Provider [phone] Encounters Date Type Department Care Team Description 07/28/2024 10:42 AM FELT HAT STEAMER - 07/28/2024 1:47 PM FELT HAT STEAMER Emergency [facility] Emergency Department [address] [place] [address] Discharge Disposition: Left without being seen from [...] Comments Blood Pressure 133/68 07/28/2024 1:19 PM FELT HAT STEAMER Pulse 63 07/28/2024 1:19 PM FELT HAT STEAMER Temperature 37.8 C (100.1 F) 07/28/2024 1:19 PM FELT HAT STEAMER Respiratory Rate 18 07/28/2024 1:19 PM FELT HAT STEAMER Oxygen Saturation 100% 07/28/2024 1:19 PM FELT HAT STEAMER Inhaled Oxygen Concentration - - Weight 54.4 kg (120 lb) 07/28/2024 10:44 AM FELT HAT STEAMER Height 162.6 cm (5' 4 ) 07/28/2024 10:44 AM FELT HAT STEAMER Body Mass Index 20.6 07/28/2024 10:44 AM FELT HAT STEAMER Plan of Treatment Not on file Insurance [facility] HMO/PPO Address: [facility] [address] [place] [address] Care Teams Data Management Consultant Relationship Specialty Start Date End Date No, Physician PCP - General 04/02/24
[2024-10-04 16:44] LABS: Partial Thromboplastin Time 29.8 Sec (23.9-30.70); Prothrombin Time 10.6 Seconds (9.50-12.1)
[2024-10-04 16:44] LABS: SARS-CoV-2 RNA PCR Negative (Negative)
[2024-10-04 16:46] LABS: Alanine Aminotransferase 28 U/L (14-59); Albumin Level 3.5 g/dL (3.4-5.0); Alkaline Phosphatase 75 U/L (46-116); Anion Gap 11 mmol/L (4-12); Aspartate Amino Transferase 19 U/L (15-37); Bilirubin,Total 0.2 mg/dL (0.00-1.00); Blood Urea Nitrogen 9 mg/dL (7-18); Carbon Dioxide 26 mmol/L (21-32); Chloride 100 mmol/L (98-108); Estimated CRCL calculation 67 ml/min; Estimated Glomerular Filt Rate > 60; Glucose 100 mg/dL (70-99); Osmolality Calculated 282 mOsm/kg (285-295); Potassium 3.4 mmol/L (3.5-5.1); Sodium 137 mmol/L (136-145); Total Protein 7.1 g/dL (6.4-8.2)
[2024-10-04 16:47] LABS: Influenza A QL RT-PCR Positive (Negative); Influenza B QL RT-PCR Negative (Negative); RSV RNA, RT-PCR Positive (Negative)
[2024-10-04 16:50] LABS: Band Neutrophils Percent 0 % (0-6); Basophils Absolute Manual 0.03 K/mm3 (0-0.1); Basophils Percent Manual 1 % (0-1); Eosinophils Absolute Manual 0.03 K/mm3 (0.02-0.50); Eosinophils Percent Manual 1 % (1-6); Lymphocytes Absolute Manual 2.22 K/mm3 (1.1-4.5); Lymphocytes Percent Manual 60 % (18-44); Monocytes Absolute Manual 0.37 K/mm3 (0.1-0.90); Monocytes Percent Manual 10 % (3-9); Neutrophils Absolute Manual 1.03 K/mm3 (1.7-7.2); Neutrophils Percent Manual 28 % (46-73); Total Cells Counted 100
[2024-10-04 16:51] LABS: Platelet Estimate Adequate (Adequate)
[2024-10-04 17:08] VITALS: BP 133/73; PULSE 68; RESP 16; TEMP 37; O2SAT 98
== END 2024-10-04 17:08 | disposition home or self-care (01) ==
LOC: CHSED 16:33
PROVIDERS: Emergency Provider Emergency Medicine
DX: J10.1 Influenza due to other identified influenza virus with other respiratory manifestations (principal); B33.8 Other specified viral diseases; R04.0 Epistaxis; Z20.822 Contact with and (suspected) exposure to COVID-19
CPT/HCPCS: 36415; 80053; 85025; 85610; 85730; 87637; 99283